=== PATIENT | female | born 1955 | race Caucasian/White ===

== ENCOUNTER 2016-03-11 05:32 | Emergency (ER) | payer BC ==
[2016-03-11] MEDS ORDERED: Acetaminophen TAB* 325 MG PO ONE (06:22)
--- NOTE | 2016-03-11 06:23 | ED ---
Influenza-Like Illness - HPI Summary HPI Summary: pt returned from [place] 2 days ago, c/o feeling fatigued, cough, weak chills, no cp/sob - History of Current Complaint Chief Complaint: EDUpperRespComplaint Hx Obtained From: Patient Onset/Duration: Gradual Onset Severity: Moderate Associated Signs & Symptoms: Myalgia, Cough Related Hx: Smoking - Allergy/Home Medications Allergies/Adverse Reactions: Allergies Allergy/AdvReac Type Severity Reaction Status Date / Time Amoxicillin [From Augmentin] Allergy Unknown Verified 03/11/16 05:37 Reaction Details Clavulanic Acid Allergy Unknown Verified 03/11/16 05:37 [From Augmentin] Reaction Details PMH/Surg Hx/FS Hx/Imm Hx Endocrine/Hematology History: Reports: Hx Thyroid Disease Infectious Disease History: No Infectious Disease History: Denies: Traveled Outside the [place] in Last 30 Days - Family History Known Family History: Positive: None - Social History Alcohol Use: Occasionally Substance Use Type: Reports: None Smoking Status (MU): Light Every Day Tobacco Smoker Cessation Counseling: Patient Advised to Stop Review of Systems Constitutional: Other Positive: Chills, Fatigue Positive: Cough All Other Systems Reviewed And Are Negative: Yes Physical Exam Triage Information Reviewed: Yes Vital Signs On Initial Exam: Initial Vitals Temp Pulse Resp BP Pulse Ox 100.8 F 97 16 108/69 95 03/11/16 05:36 03/11/16 05:36 03/11/16 05:36 03/11/16 05:36 03/11/16 05:36 Vital Signs Reviewed: Yes Appearance: Positive: Well-Appearing, No Pain Distress, Thin Skin: Positive: Warm Eyes: Positive: Normal, TANA ENT: Positive: Hearing grossly normal Neck: Positive: Supple Respiratory/Lung Sounds: Positive: Clear to Auscultation, Breath Sounds Present Cardiovascular: Positive: Normal Abdomen Description: Positive: Nontender, No Organomegaly, Soft Bowel Sounds: Positive: Present Musculoskeletal: Positive: Strength/ROM Intact Neurological: Positive: Sensory/Motor Intact, Alert, Oriented to Person Place, Time, Normal Gait Psychiatric: Positive: Normal - Eliza Coma Scale Coma Scale Total: 15 Diagnostics - Vital Signs Vital Signs Temp Pulse Resp BP Pulse Ox 03/11/16 05:36 100.8 F 97 16 108/69 95 - Laboratory Result Diagrams: 03/11/16 07:00 03/11/16 07:00 Lab Statement: Any lab studies that have been ordered have been reviewed, and results considered in the medical decision making process. - Radiology cxr Xray Interpretation: No Acute Changes Radiology Interpretation Completed By: ED Physician Re-Evaluation - Re-Evaluation First Eval Re-Evaluation Time: 07:57 - reviewed CXR and blood work results with pt Flu Symptom Course/Dx - Diagnoses Provider Diagnoses: Flu Discharge - Discharge Plan Condition: Stable Disposition: HOME Prescriptions: Acetaminoph/Cod 120/12 mg LIQ* [Tylenol/Codeine 120/12 LIQ*] 5 ml PO Q4H PRN # 120 udc MDD 30 PRN Reason: Cough Albuterol HFA INHALER* [Ventolin HFA Inhaler*] 2 puff INH Q6H PRN #1 mdi PRN Reason: cough Oseltamivir CAP* [Tamiflu CAP*] 75 mg PO BID #9 cap Patient Education Materials: Acetaminophen/Codeine (By mouth), Ibuprofen (By mouth), Albuterol (By breathing), Influenza (ED) Referrals: Francesca Swanson MD [Primary Care Provider] - Additional Instructions: Take ibuprofen and tylenol for fever.
[2016-03-11 07:14] LABS: Hematocrit 42 % (35-47); Hemoglobin 13.9 g/dl (12.0-16.0); Mean Corpuscular HGB Conc 34 g/dl (31-36); Mean Corpuscular Hemoglobin 30 pg (27-31); Mean Corpuscular Volume 91 fL (80-97); Mean Platelet Volume 10 um3 (7.4-10.4); Red Blood Count 4.57 10^6/ul (4.0-5.4); Red Cell Distribution Width 13 % (10.5-15); White Blood Count 7.7 10^3/ul (3.5-10.8)
[2016-03-11 07:25] LABS: Albumin 4.1 g/dL (3.2-5.2); Calcium 9.1 mg/dL (8.6-10.3); EGFR African American 109.4 (>60); EGFR Non-African American 85.1 (>60); Globulin 2.4 g/dL (2-4); Potassium 3.7 mmol/L (3.5-5.0); Total Bilirubin 0.4 mg/dL (0.2-1.0); Total Protein 6.5 g/dL (6.4-8.9)
--- NOTE | 2016-03-11 07:37 | RAD ---
HISTORY: Cough COMPARISONS: October 07, 2012 VIEWS: 2: Frontal dual-energy and lateral views of the chest. FINDINGS: CARDIOMEDIASTINAL SILHOUETTE: The cardiomediastinal silhouette is normal. JHOAN: The jhoan are normal. PLEURA: The costophrenic angles are sharp. No pleural abnormalities are noted. LUNG PARENCHYMA: There is hyperinflation with flattening of the diaphragm and expansion of the retrosternal airspace. ABDOMEN: The upper abdomen is clear. There is no subphrenic gas. BONES AND SOFT TISSUES: No bone or soft tissue abnormalities are noted. OTHER: None. IMPRESSION: HYPERINFLATION, CONSISTENT WITH COPD. NO ACTIVE CARDIOPULMONARY DISEASE.
[2016-03-11] MEDS ORDERED: Oseltamivir CAP* 75 MG PO ONE (07:55)
--- NOTE | 2016-03-11 08:26 | ED ---
Jaden Alejo Benjamin, scribed for Italo Ridley MD on 03/11/16 at 0758 . Progress - Progress Note Progress Note: Signout pt from Dr. Stevens. 61yo female c/o cough, nausea, fatigue, and slight fever tonight, and has been gradually getting sick for a few days. Pt recently returned from [place] via flight. - Results/Orders Results/Orders: Lab: Influenza A +. Bloodwork otherwise normal. CXR: negative for PNA. Re-Evaluation - Re-Evaluation First Eval Re-Evaluation Time: 07:57 - reviewed CXR and blood work results with pt Course/Dx - Diagnoses Provider Diagnoses: Flu The documentation as recorded by the jacobibJaden marin Benjamin accurately reflects the service I personally performed and the decisions made by , Italo Ridley MD.
[2016-03-11 08:27] VITALS: BP 122/68
== END 2016-03-11 08:26 | disposition home or self-care (01) ==
LOC: ED 05:32
DX: J11.1 Influenza due to unidentified influenza virus with other respiratory manifestations (principal); R05 Cough; R11.0 Nausea; R50.9 Fever, unspecified
CPT/HCPCS: 36415; 71020; 80053; 85025; 87502; 99283; A9270-GY

== ENCOUNTER 2017-05-18 13:59 | Emergency (ER) | payer BC ==
--- NOTE | 2017-05-18 17:01 | ED ---
Throat Pain/Nasal Congestion - HPI Summary HPI Summary: B/L ear pressure started 1 week ago- has tried sudafed w/ some relief. Home temp 72F. Has been trying to quit smoking - went from 1 PPD to 3-4 cigs per day - back up recently. Admits to blood tinged nasal mucous at times - no aida epistaxis. Denies fever, chills, REMY, ST, otalgia, N/V/D. She has had some spinning sensation w/ positional changes. Saw PCP this week who told her she has allergies - advised to start nasal steroid spray which she's tried once. Also given meclizine for vertigo - has not taken today. No REMY, visual changes, n /t/w, change in bowel/bladder habits, slurred speech, neck pain, CP, dyspnea, dysphagia, facial droop, etc. No h/o neuro pathology and none in family. BP well controlled and no cardiac issues. - History of Current Complaint Chief Complaint: EDEarPain Time Seen by Provider: 05/18/17 15:25 Hx Obtained From: Patient - Allergies/Home Medications Allergies/Adverse Reactions: Allergies Allergy/AdvReac Type Severity Reaction Status Date / Time amoxicillin [From Augmentin] Allergy See Comment Verified 05/18/17 14:07 clavulanic acid Allergy See Comment Verified 05/18/17 14:07 [From Augmentin] PMH/Surg Hx/FS Hx/Imm Hx Endocrine/Hematology History: Reports: Hx Thyroid Disease Infectious Disease History: No Infectious Disease History: Denies: Traveled Outside the [place] in Last 30 Days - Family History Known Family History: Positive: None - Social History Alcohol Use: Occasionally Substance Use Type: Reports: None Hx Tobacco Use: Yes Smoking Status (MU): Light Every Day Tobacco Smoker Physical Exam Vital Signs On Initial Exam: Initial Vitals Temp Pulse Resp BP Pulse Ox 97.1 F 81 17 115/71 94 05/18/17 14:01 05/18/17 14:01 05/18/17 14:01 05/18/17 14:01 05/18/17 14:01 Diagnostics - Vital Signs Vital Signs Temp Pulse Resp BP Pulse Ox 05/18/17 14:01 97.1 F 81 17 115/71 94 - Laboratory Lab Statement: Any lab studies that have been ordered have been reviewed, and results considered in the medical decision making process. EENT Course/Dx - Course Course Of Treatment: Sudafed worked somewhat - stop all meds and try Afrin + saline nasal spray, inc humidification, red home heat, red smoking. F/u w/ PCP if no relief. Discussed next step may be imaging so is important to f/u if no change or worse in next 2-3 days. Danger s/sx reviewed here. Pt agrees w/ plan. - Diagnoses Provider Diagnoses: Eustachian tube dysfunction Discharge - Sign-Out/Discharge Documenting (check all that apply): Discharge - Discharge Plan Condition: Stable Disposition: HOME Patient Education Materials: Vertigo (ED) Referrals: Becky Roldan MD [Primary Care Provider] - Additional Instructions: You are experiencing eustachian tube dysfunction (see education for details). The cause of this is suspected to be from inflamed and irritated nasal mucosa. You may address this by reducing the heat in your home to 68F or less, using humidifier, stay hydrated with plenty of water, juices, Gatorade, etc.avoid diuretics such as caffeine, alcohol etc. In an effort to reduce the swelling in her nasal passages and open up your station tube, you may try Afrin nasal spray. This may be purchased [id number]. Please use as directed on instructions and no more to prevent increased swelling. Stop nasal steroid while using Afrin. You may continue Sudafed with Afrin at your discretion ( i.e. if you get some relief with Afrin and would like to get more, tried with Sudafed). Additionally may try saline nasal sprays or rinses - inquire with the pharmacist for more details. For your vertigo symptoms, he may continue the meclizine until your inner ear pressure resolves. However if both or either of these symptoms persist, follow up with her PCP in the next 2-3 days for more advanced testing which may include imaging as necessary. *If in the meantime you develop a fever greater than 103F despite trying ibuprofen and acetaminophen, change in vision, headache, numbness, tingling, weakness, slurred speech, facial droop, neck pain or stiffness, return to the emergency department NOTE: anything you can do to continue your efforts with smoking cessation will be in your best interest as this may also reduce your nasal mucosal irritation. In place of smoking, you may try gum or patches as these will not irritate your nasal mucosa. - Billing Disposition and Condition Condition: STABLE Disposition: HOME
[2017-05-18 17:25] VITALS: BP 127/77
== END 2017-05-18 17:24 | disposition home or self-care (01) ==
LOC: ED 13:59
DX: H69.90 Unspecified Eustachian tube disorder, unspecified ear (principal)
CPT/HCPCS: 99282

== ENCOUNTER 2018-01-14 08:46 | Emergency (ER) | payer BC ==
[2018-01-14] MEDS ORDERED: NS 0.9% 1000 ML* 1,000 ML IV ONE ×2 (09:05→10:22)
[2018-01-14 09:28] LABS: ABS Basophils 0 10^3/ul (0-0.2); ABS Eosinophils 0.3 10^3/ul (0-0.6); ABS Lymphocytes 1.7 10^3/ul (1.0-4.8); ABS Monocytes 0.4 10^3/ul (0-0.8); ABS Neutrophils 2.1 10^3/ul (1.5-7.7); ABS Nucleated RBC 0 10^3/ul; Eosinophil % 6.1 % (0-6); Hematocrit 41 % (35-47); Hemoglobin 13.8 g/dl (12.0-16.0); Lymphocyte % 37.7 % (25-47); Mean Corpuscular HGB Conc 34 g/dl (31-36); Mean Corpuscular Hemoglobin 31 pg (27-31); Mean Corpuscular Volume 92 fL (80-97); Mean Platelet Volume 9.4 fL (7.4-10.4); Nucleated Red Blood Cells % 0; Platelet Count 257 10^3/ul (150-450); Red Blood Count 4.51 10^6/ul (4.00-5.40); Red Cell Distribution Width 13 % (10.5-15); White Blood Count 4.6 10^3/ul (3.5-10.8)
[2018-01-14 09:41] LABS: INR 0.94 (0.77-1.02)
[2018-01-14 09:47] LABS: EGFR Non-African American 92.4 (>60)
--- OUTSIDE RECORDS SUMMARY | 2018-01-14 09:53 | XMS REPORT | Continuity of Care Document ---
:1955 External Reference #:[id number] Author Name Juanita Mejia Care Team Providers Name Role Phone Becky Roldan MD Primary Care Physician Unavailable Payers Type Date Identification Numbers Payment Provider Subscriber Effective: Policy Number: [id number] [employer] Whit Kenney 2016 PayID: [id number] [address] [address] [place] [address] Advance Directives Description No Information Available Problems Description No Information Family History Date Family Member(s) Problem(s) Comments General Heart Disease General Cancer General Stroke Father Heart Disease Father due to Heart Disease () Mother Esophagus Cancer Mother due to Cancer () Social History Type Date Description Comments Sex Unknown Marital Status Single Lives With Alone Lives With 3 Dogs and 3 cats Occupation Currently Working Occupation Landlord Tobacco Use Start: Unknown current cigarette smoker ETOH Use Occasionally consumes alcohol Tobacco Use Start: Unknown Patient is a current smoker, smokes every day Recreational Drug Use Denies Drug Use Tobacco Use Start: Unknown Light tobacco smoker (10 or fewer cigarettes/day) Exercise Type/Frequency Exercises sporadically Allergies, Adverse Reactions, Alerts Date Description Reaction Status Severity Comments 01/12/2018 Augmentin Depression Active 01/12/2018 Bee Sting Anaphylaxsis Active Medications Medication Date Status Form Strength Qnty SIG Indications Ordering Provider Levothyroxine 01/12/ Active Tablets 100mcg 30tabs 1 by mouth E03.9 Garcia Sodium 2018 every day MD Clement Clonazepam / Active Tablets 0.5mg 1 by mouth Unknown 0000 every night at bedtime Wellbutrin SR / Active Tablets ER 200mg take one Unknown 0000 12HR by mouth twice daily Vivelle-Dot / Active Patches 0.075mg/24 one patch Unknown 0000 Biweek HR every 5 days Progesterone / Active Capsules 150mg daily Unknown Micronized 0000 Epipen 2-Gavin 00/00/ Active Solution 0.3mg/0.3M use as Unknown 0000 Auto-Injec L directed t [place] Thyroid / Hx Tablets 90mg Jamar, 0000 - Becky 01/12/ MD Vicky 2017 Immunizations Description No Information Available Vital Signs Date Vital Result Comment 01/12/2018 7:48am Height 64 inches 5'4" Weight 117.00 lb Heart Rate 70 /min reg BP Systolic Sitting 84 mmHg Lue reg cuff BP Diastolic Sitting 60 mmHg Lue reg cuff Respiratory Rate 16 /min BMI (Body Mass Index) 20.1 kg/m2 Results Description No Information Available Procedures Description No Information Available Encounters Description No Information Available Plan of Treatment Future Appointment(s):03/15/2018 1:20 pm - Jose Vaughan MD at [facility]01/12/2018 - Jose Vaughan MDE78.5 Hyperlipidemia, [id number] Chronic fatigue, [id number] Hypothyroidism, unspecifiedNew Medication:Levothyroxine Sodium 100 mcg - 1 by mouth every dayFollow up:2 monthsInstructions:1. Stop [place] Thyroid. 2. Start levothyroxine 100mcg daily. 3. Recheck thyroid function tests in 3-4 weeks. 4. Avoid all biotin-containing medications for 1 week before tests. 5. Return in 2 months.
--- OUTSIDE RECORDS SUMMARY | 2018-01-14 09:53 | XMS REPORT ---
:1955 External Reference #:[id number] Author Organization [facility] Address [address] [place] [address] Phone [phone] Care Team Providers Name Role Phone Becky Roldan Care Team Information Strategic Account Manager Unavailable Becky Roldan Primary Care Physician Unavailable Payers Type Date Identification Numbers Payment Provider Subscriber Commercial Effective: Policy Number: BC/BS Of PRANAV Whit Kenney 2015 [id number] PayID: [id number] [address] [place] [id number] Problems Description No Information Family History Date Family Member(s) Problem(s) Comments Father due to Heart Disease () - 68 yo Mother due to Throat Cancer () - 74 yo, smoker. Children None Siblings 1 Siblings None First Brother Unknown First Brother 70 Paternal Grandfather due to Stroke () - 69 yo Paternal Grandmother due to Natural Causes () - 80's Maternal Grandfather due to Stroke () - 60's Maternal Grandmother due to Natural Causes () - 80's Social History Type Date Description Comments Marital Status Single Diet gluten and dairy free. no sugar. no desserts. 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 Cigarette Use Current Cigarette Smoker 1/2 x 40 years. down to 6-7 Pack Daily a day 01/2016. down to one cigarette a day. 05/2017. ETOH Use Rare Smoking Patient is a current smoker, smokes every day Daily Caffeine Consumes on average 2 cups of 1/2 decaf and 1/2 regular. coffee per day Exercise Type/Frequency Exercises sporadically walks the dogs most days, 1/2 hour a day. Seat Belt/Car Seat Always uses seat belt Dom Violence Screen screening has been done Dom Violence Screen Allergies, Adverse Reactions, Alerts Date Description Reaction Status Severity Comments 08/13/2015 Augmentin depression/felt awful active 09/04/2016 Bee Sting active 07/23/2015 NKDA inactive Medications Medication Date Status Form Strength Qnty SIG Indications Ordering Provider Odell Thyroid 09/05/ Active Tablets 90mg 90tab 1 by mouth E03.9 Becky Perry 2018 s every day Brijesh Roldan Epinephrine 06/18/ Active Solution 0.3mg/0.3M 2unit use as Becky Perry 2018 Auto-Inject L s directed Brijesh Roldan Progesterone 08/20/ Active Capsules 150mg 30cap 1 by mouth N95.1 Becky Perry Micronized 2016 s every day Brijesh Roldan Clonazepam / Active Tablets 0.5mg 60tab take 1 G47.00 Becky LMadeleine 0000 s tablet by iraj Roldan M.DMadeleine twice daily Wellbutrin / Active Tablets 100mg 60tab take 2 F33.0 Becky L. 0000 s tablets by iraj Roldan M.DMadeleine every day Vivelle-Dot / Active Patches 0.075mg/24 8unit Apply 1 Becky L. 0000 Biweek HR s Patch To Marysol Roldan And Brijesh Dry Skin And Change Twice Per Week Valacyclovir 09/05/ Hx Tablets 1gm 21tab take B02.9 Maci HCL 2018 - s tablets Kalli, 12/29/ three CONTINUOUS LINTER DRIER OPERATOR 2018 times a day for 7d Nasonex 05/17/ Hx Suspension 50mcg/Act 17uni 2 sprays J30.89 Becky Perry 2018 - ts in each Jamar, 06/18/ nostril M.DMadeleine 2018 daily Sudafed 24 05/17/ Hx Tablets ER 240mg J30.89 Becky Perry Hour 2018 - 24HR Jamar, 06/18/ M.D. 2018 Meclizine HCL 05/17/ Hx Tablets 12.5mg 50tab 1-2 by J30.89 Becky Perry 2018 - s mouth four Jamar, 06/18/ times a M.D. 2018 day as needed dizziness Odell Thyroid 02/23/ Hx Tablets 30mg 15tab 1 by mouth Becky Perry 2016 - s 2/7 days a Jamar, 06/18/ week in M.D. 2017 addition to the 60 mg pill. Progesterone/T 08/20/ Hx Cream as Unknown estosterone/Es 2017 - directed trogen 2016 Progesterone 02/08/ Hx Capsules 150mg 90cap 1 by mouth N95.1 Becky Perry 2015 every Jamar, 09/04/ night at M.D. 2017 bedtime pls fax to: Progesterone 10/06/ Hx Soft Gel 90uni take 1 N95.1 Becky Perry 2016 - Caps ts capsule by Jamar, 09/03/ mouth qhs M.D. 2016 Progesterone 09/29/ Hx Capsules 100mg 90cap take one N95.1 Becky Perry Micronized 2015 - s capsule by Jamar, 10/06/ mouth at M.D. 2016 bedtime Azithromycin 08/12/ Hx Tablets 250mg 6tabs 2 by mouth J20.8 Becky Prery 2015 - today. 1 Jamar, 02/08/ by mouth M.D. 2015 daily x 4 Epipen 2-Gavin 07/22/ Hx Solution 0.3mg/0.3M Z91.030 Laila 2016 - Auto-Inject Tonya Mejia NP 2017 Progesterone / Hx Capsules 150mg 90cap 1 by mouth N95.1 Becky Perry 0000 - s every Jamar, 09/29/ night at M.D. 2016 bedtime Vivelle-Dot / Hx Patches 0.075mg/24 8unit Apply 1 N95.1 Becky Perry 0000 - Biweek HR s Patch To Jamar, 08/20/ Clean And M.D. 2016 Dry Skin And Change Twice Per Week Odell Thyroid / Hx Tablets 60mg 180ta take 2 E03.9 Becky Perry 0000 - bs tablet by Jamar, 09/05/ mouth M.D. 2017 every day Progestone / Hx Capsule qd Unknown 0000 - 2016 Medications Administered in Office Medication Date Status Form Strength Qnty SIG Indications Ordering Provider B-12 Injection 09/05/ Administered Injection Maci 2018 Kalli, CONTINUOUS LINTER DRIER OPERATOR Injection 07/09/ Administered Injection Maci Subcutaneous Or 2018 Kalli, Intramuscular CONTINUOUS LINTER DRIER OPERATOR Vital Signs Date Vital Result Comment 12/29/2017 BP Systolic 116 mmHg BP Diastolic 66 mmHg Heart Rate 84 /min Body Temperature 98.4 F Respiratory Rate 16 /min Weight 119.00 lb 09/05/2017 BP Systolic 108 mmHg BP Diastolic 64 mmHg Heart Rate 82 /min Body Temperature 98.2 F Respiratory Rate 15 /min Height 64 inches 5'4" Weight 117.25 lb BMI (Body Mass Index) 20.1 kg/m2 06/18/2017 BP Systolic 100 mmHg BP Diastolic 60 mmHg Heart Rate 60 /min Body Temperature 99.0 F Respiratory Rate 16 /min Height 64 inches 5'4" Weight 118.00 lb BMI (Body Mass Index) 20.3 kg/m2 05/17/2017 BP Systolic 112 mmHg BP Diastolic 78 mmHg Heart Rate 72 /min Body Temperature 98.2 F Respiratory Rate 16 /min Height 64 inches 5'4" Weight 120.00 lb BMI (Body Mass Index) 20.6 kg/m2 02/18/2017 BP Systolic 96 mmHg BP Diastolic 60 mmHg Heart Rate 74 /min Body Temperature 99.1 F Respiratory Rate 16 /min Height 64 inches 5'4" Weight 120.00 lb BMI (Body Mass Index) 20.6 kg/m2 09/04/2016 BP Systolic 108 mmHg BP Diastolic 66 mmHg Heart Rate 66 /min Body Temperature 97.5 F Respiratory Rate 16 /min Height 64 inches 5'4" Weight 117.38 lb BMI (Body Mass Index) 20.1 kg/m2 02/09/2016 BP Systolic 100 mmHg BP Diastolic 60 mmHg Heart Rate 76 /min Body Temperature 98.0 F Respiratory Rate 16 /min Height 64 inches 5'4" Weight 113.00 lb BMI (Body Mass Index) 19.4 kg/m2 08/13/2015 BP Systolic 110 mmHg BP Diastolic 78 mmHg Heart Rate 60 /min Body Temperature 98.2 F Respiratory Rate 18 /min Height 63.75 inches 5'3.75" Weight 117.00 lb BMI (Body Mass Index) 20.2 kg/m2 07/23/2015 BP Systolic 120 mmHg BP Diastolic 54 mmHg Heart Rate 78 /min Body Temperature 97.3 F Respiratory Rate 16 /min Height 63.75 inches 5'3.75" Weight 117.00 lb BMI (Body Mass Index) 20.2 kg/m2 Results Test Date Test Result H/L Range Note Laboratory test 06/18/2017 Triiodothyronine (T3) 258 ng/dL High 71-180 1 finding Thyroid Antibody & 06/18/2017 Thyroid Peroxidase (Tpo) 10 IU/mL 0-34 1 Peroxidase Ab Thyroglobulin Antibody <1.0 IU/mL 0.0-0.9 1, 2 Laboratory test finding 06/18/2017 Reverse T3, Serum 19.3 ng/dL 9.2-24.1 1 Laboratory test finding 06/18/2017 Free T4 1.43 ng/dL 0.75-1.54 TSH <0.03 mIU/L Low 0.50-6.00 3 Free T3 7.58 pg/mL High 2.00-4.90 4 Comprehensive Metabolic Prof 06/18/2017 Sodium 142 mEq/L 134-149 Potassium 4.7 mEq/L 3.6-5.5 Chloride 104 mEq/L 94-112 Carbon Dioxide 26 mEq/L 21-32 Glucose 88 mg/dL 70-105 BUN 14 mg/dL 6-26 Creatinine 0.6 mg/dL 0.6-1.4 BUN/Creat Ratio 23.3 CALC 8.0-36.0 Calcium 10.2 mg/dL 8.6-10.2 Total Protein 6.6 g/dL 6.4-8.3 Albumin 4.5 g/dL 3.8-5.5 Globulin 2.1 g/dL 2.0-4.8 A/G Ratio 2.1 CALC 0.6-2.3 Alk. Phosphatase 59 U/L 30-110 Alt (SGPT) 19 U/L 7-35 Ast (Sgot) 17 U/L 5-34 Total Bilirubin 0.5 mg/dL 0.2-1.3 GFR Non- >60 ml/min/1.73m^ >=60 GFR >60 ml/min/1.73m^ >=60 Fractionated Estrogens 02/15/2017 Estrone (E1) 37 pg/mL 5 Estradiol (E2) 51 pg/mL 6 Testosterone Free & Total 02/15/2017 Free Testosterone ng/dl 0.10 ng/dL 0.06-0.87 7 Testosterone 14 ng/dL 8-60 8 Laboratory test finding 02/15/2017 Estrone 29 pg/mL 9 Insulin-Like Growth Factor 1 02/15/2017 Insulin like Growth 112 ng/mL 35- 201 Factor I Igf1 Z-score 0.39 SD 10 Laboratory test finding 02/15/2017 Cortisol 15.43 g/dL 11 Thyroxine 4.07 g/mL Low 6.09-12.23 TSH (Thyroid Stim Horm) 0.91 mcIU/mL 0.34-5.60 T3 Total 0.63 ng/mL Low 0.87-1.78 Estradiol 66 pg/mL 12 Progesterone 6.4 ng/mL 13 Unconjugated (Free) Estriol <0.07 ng/mL <0.08 14 Dhea Sulfate 125 g/dL <15-157 15 Laboratory test finding 07/23/2015 TSH 0.71 mIU/L 0.50-6.00 Free T4 0.97 ng/dL 0.75-1.54 1 1SST 2 Thyroglobulin Antibody measured by [employer] Methodology 3 RESULTS VERIFIED BY REPEAT ANALYSIS 4 RESULTS VERIFIED BY REPEAT ANALYSIS 5 REFERENCE VALUE Premenopausal :17-200 Postmenopausal : 7-40 ADDITIONAL INFORMATION This test was developed and its performance characteristics determined by [facility] in a manner consistent with CLIA requirements. This test has not been cleared or approved by the U.S. Food and Drug Administration. 6 REFERENCE VALUE Premenopausal: 15-350 (E2 levels vary widely through the menstrual cycle.) Postmenopausal: <10 ADDITIONAL INFORMATION This test was developed and its performance characteristics determined by [facility] in a manner consistent with CLIA requirements. This test has not been cleared or approved by the U.S. Food and Drug Administration. Test Performed by: [facility] [employer] - [facility] [address] [place] [address] 7 ADDITIONAL INFORMATION Testing performed by [facility]. This test was developed and its performance characteristics determined by [facility] in a manner consistent with CLIA requirements. This test has not been cleared or approved by the U.S. Food and Drug Administration. 8 ADDITIONAL INFORMATION Testing performed by Liquid Chromatography-Tandem Mass Spectrometry (LC-MS/MS). This test was developed and its performance characteristics determined by [facility] in a manner consistent with CLIA requirements. This test has not been cleared or approved by the U.S. Food and Drug Administration. Test Performed by: [facility] [employer] - [address] [address] 9 REFERENCE VALUE Premenopausal :17-200 Postmenopausal : 7-40 ADDITIONAL INFORMATION This test was developed and its performance characteristics determined by [facility] in a manner consistent with CLIA requirements. This test has not been cleared or approved by the U.S. Food and Drug Administration. Test Performed by: [facility] [employer] - [address] [address] 10 REFERENCE VALUE -2.0 - +2.0 ADDITIONAL INFORMATION This test was developed and its performance characteristics determined by [facility] in a manner consistent with CLIA requirements. This test has not been cleared or approved by the U.S. Food and Drug Administration. Test Performed by: [address] [address] 11 AM 8.7-22.4 PM <10 12 Estradiols <40 pg/mL are sent to a reference lab for low range testing. Postmenopausal Females < 20 Ovulating females: by day in cycle relative to LH Peak Follicular phase - 12 10-50 - 4 60-200 Mid-cycle - 1 120-375 Luteal phase + 2 50-155 + 6 60-260 + 12 15-115 13 Female reference ranges for Progesterone: Follicular phase.......0.3 - 1.5 ng/ml Mid-luteal phase.......5.2 - 18.5 ng/ml Postmenopausal.........< 0.8 ng/ml 1st trimester.........4.7 - 50.0 ng/ml 2nd trimester.........19.4 - 45.3 ng/ml 14 Test Performed by: [address] [address] 15 Test Performed by: [address] [address] Procedures Date CPT Code Description Status Comment 09/05/2017 26618 Injection Subcutaneous Or Completed Intramuscular 06/18/2017 63292 Electrocardiogram Complete Completed 04/14/2017 Mammogram Completed 04/14/2017 Bone Mineral Density Test Completed osteopenia done at [facility]. 02/29/2012 Colonoscopy Completed 10yr f/u [facility]. Encounters Type Date Location Provider CPT E/M Dx Office Visit 09/05/2017 9:30a Main Office ANUJA Stovall [address] B02.9 Office Visit 06/18/2017 9:40a Main Office Becky oRldan M.D. 05223 H02.403 Z01.818 E03.9 H04.123 Office Visit 05/17/2017 1:20p Main Office Becky Roldan M.D. 19436 J30.89 H01.133 Z48.02 S01.00xA Office Visit 02/18/2017 2:40p [facility] Becky Roldan M.D. 05591 E03.9 R53.83 Office Visit 09/04/2016 10:50a Main Office Becky Roldan M.D. 08977 F43.22 F17.208 L63.8 Office Visit 02/09/2016 1:00p Main Office Becky Roldan M.D. 67164 Z00.01 G47.00 F43.22 E03.9 F43.21 N60.02 E55.9 Office Visit 08/13/2015 1:50p Main Office Becky Roldan M.D. 38973 J20.8 N95.1 F17.208 Z71.6 Office Visit 07/23/2015 11:00a Main Office Laila MejiaLUDMILA 53509 N95.1 G47.00 F33.0 Z91.030 E03.9 Plan of Care Future Appointment(s):12/30/2017 9:00 am - Becky Roldan M.D. at Main Pqyxhg6912/29/2017 - Becky Roldan M.D.R53.83 Other fatigueNew Labs:CBC W/ DiffCortisol AmCCS-Comp And Lipid (Fma)B12 (Fma/[facility])Bartonella SP Antibody ProfileFolic Acid (Fma/[facility])Ebv Antibody PanelLyme Total/Igm/G WB Regardless/LcorpTick-Borne Panel PCRUric Acid, SerumOmega-3 & -6 Fatty Acids PlasmComments:You've already started to do better with lifestyle habits.Follow up:3-4 weeks.E03.9 Hypothyroidism, unspecifiedNew Labs:T4 + TSH + T3 QihimuL86.9 Vitamin D deficiency, unspecifiedNew Labs:Vitamin D, 25Hydroxy( Fma/LCG47.00 Insomnia, unspecifiedComments:refill sgclmmwrohF44.0 Bilateral primary osteoarthritis of kneeComments:refer to Dr. Chowdary.L63.8 Other alopecia areataNew Labs:Iron/Tibc & Ferritin([facility])N60.19 Diffuse cystic mastopathy of unspecified breastNew Xrays:Ultrasound Breast BilateralComments: refer to Ifeoma Espinoza [place] [facility].AllComments:~B_~U_Medication Management ~b_~u_ Patient Understands medications she's taking? Yes No Are there Barriers to Adherence? Yes No Has the patient been asked about herbal supplements and therapies, and OTC meds? Yes No ~B_~U_Care Plan~b_~ u_1. Patient has been queried about patient's goals/preferences and functional/ lifestyle goals at relevant visits. If relevant, describe: na2. Treatment goals as explained to the patient: above3. Are there barriers to meeting treatment goals? Yes No If Yes, please describe:4. Self-Management goals as described to the patient: Yes No as above.
--- NOTE | 2018-01-14 10:07 | ED ---
Complex/Multi-Sys Presentation - HPI Summary HPI Summary: 62-year-old female presents with weakness for the month. She states it is really hard to get out of bed. She states that she believes it is her thyroid causing her illness. States she was seen by endocrine on and they told to cut her thyroid medicine in half. States that she needs more thyroid medication as whenever she by accident takes more medication she feels better. She admits occasional dizziness. Dizziness is minimal now. States she was given some juice which did not help. No nausea vomiting. No chest pain or shortness breath. denies any feeling that she is going to pass out. she was tested for lyme and neg two weeks ago. denies any headache. no fever. no recent illness. - History Of Current Complaint Chief Complaint: EDDizziness Time Seen by Provider: 01/14/18 09:01 - Allergies/Home Medications Allergies/Adverse Reactions: Allergies Allergy/AdvReac Type Severity Reaction Status Date / Time amoxicillin [From Augmentin] Allergy See Comment Verified 05/18/17 14:07 clavulanic acid Allergy See Comment Verified 05/18/17 14:07 [From Augmentin] Home Medications: Home Medications Estradiol [Vivelle-Dot] 1 patch TRANSDERM Q4D 01/14/18 [History Confirmed ] Levothyroxine TAB* [Synthroid TAB*] 100 mcg PO DAILY 01/14/18 [History Confirmed 01/14/18] Progesterone, Micronized [Progesterone] 150 mg PO BEDTIME 01/14/18 [History Confirmed 01/14/18] Thyroid TAB (NF) [Thyroid TAB 90 MG(NF)] 90 mg PO DAILY 01/14/18 [History Confirmed 01/14/18] buPROPion TAB* [Wellbutrin TAB*] 100 mg PO BID 01/14/18 [History Confirmed 01/14] clonazePAM [Clonazepam] 0.5 mg PO BEDTIME 01/14/18 [History Confirmed 01/14/18] PMH/Surg Hx/FS Hx/Imm Hx Endocrine/Hematology History: Reports: Hx Thyroid Disease Denies: Hx Anticoagulant Therapy, Hx Blood Disorders, Hx Diabetes, Hx Systemic Lupus Erythematosus, Hx Anemia Cardiovascular History: Denies: Hx Aneurysm, Hx Congenital Heart Disease, Hx Congestive Heart Failure , Hx Embolism, Hx Hypotension, Hx Hypertension, Hx Myocardial Infarction GI History: Denies: Hx Gastrointestinal Bleed, Hx Ulcer Musculoskeletal History: Denies: Hx Rheumatoid Arthritis, Hx Osteoporosis Infectious Disease History: No Infectious Disease History: Denies: Traveled Outside the [place] in Last 30 Days - Family History Known Family History: Positive: None - Social History Alcohol Use: Occasionally Hx Substance Use: No Substance Use Type: Reports: None Hx Tobacco Use: Yes Smoking Status (MU): Current Every Day Smoker Review of Systems Negative: Fever Negative: Chest Pain Negative: Shortness Of Breath Negative: Abdominal Pain Positive: Weakness All Other Systems Reviewed And Are Negative: Yes Physical Exam Triage Information Reviewed: Yes Vital Signs On Initial Exam: Initial Vitals Temp Pulse Resp BP Pulse Ox 96.8 F 95 18 100/63 95 01/14/18 08:49 01/14/18 08:49 01/14/18 08:49 01/14/18 08:49 01/14/18 08:49 Vital Signs Reviewed: Yes Appearance: Positive: Well-Appearing Skin: Positive: Warm, Dry Head/Face: Positive: Normal Head/Face Inspection Eyes: Positive: Normal, EOMI, TANA, Conjunctiva Clear ENT: Positive: Normal ENT inspection, Pharynx normal, TMs normal Neck: Positive: Supple, Nontender, No Lymphadenopathy Respiratory/Lung Sounds: Positive: Clear to Auscultation, Breath Sounds Present Cardiovascular: Positive: Normal, RRR Abdomen Description: Positive: Nontender, Soft Bowel Sounds: Positive: Present Musculoskeletal: Positive: Normal Neurological: Positive: Normal Psychiatric: Positive: Normal Diagnostics - Vital Signs Vital Signs Temp Pulse Resp BP Pulse Ox 01/14/18 09:32 74 16 99/66 96 01/14/18 09:02 77 99/62 97 01/14/18 08:49 96.8 F 95 18 100/63 95 - Laboratory Lab Results: Lab Results 01/14/18 01/14/18 01/14/18 Range/Units 09:14 09:14 09:14 WBC 4.6 (3.5-10.8) 10^3/ul RBC 4.51 (4.00-5.40) 10^6/ul Hgb 13.8 (12.0-16.0) g/dl Hct 41 (35-47) % MCV 92 (80-97) fL MCH 31 (27-31) pg MCHC 34 (31-36) g/dl RDW 13 (10.5-15) % Plt Count 257 (150-450) 10^3/ul MPV 9.4 (7.4-10.4) fL Neut % (Auto) 45.6 (38-83) % Lymph % (Auto) 37.7 (25-47) % [place] % (Auto) 9.7 H (0-7) % Eos % (Auto) 6.1 H (0-6) % Baso % (Auto) 0.9 (0-2) % Absolute Neuts (auto) 2.1 (1.5-7.7) 10^3/ul Absolute Lymphs (auto) 1.7 (1.0-4.8) 10^3/ul Absolute Monos (auto) 0.4 (0-0.8) 10^3/ul Absolute Eos (auto) 0.3 (0-0.6) 10^3/ul Absolute Basos (auto) 0 (0-0.2) 10^3/ul Absolute Nucleated RBC 0 10^3/ul Nucleated RBC % 0 INR (Anticoag Therapy) 0.94 (0.77-1.02) APTT 30.1 (26.0-36.3) seconds Sodium 142 (135-145) mmol/L Potassium 4.3 (3.5-5.0) mmol/L Chloride 110 (101-111) mmol/L Carbon Dioxide 28 (22-32) mmol/L Anion Gap 4 (2-11) mmol/L BUN 15 (6-24) mg/dL Creatinine 0.65 (0.51-0.95) mg/dL Est GFR ( Amer) 111.8 (>60) Est GFR (Non-Af Amer) 92.4 (>60) BUN/Creatinine Ratio 23.1 H (8-20) Glucose 95 (70-100) mg/dL Lactic Acid (0.5-2.0) mmol/L Calcium 9.5 (8.6-10.3) mg/dL Magnesium 2.0 (1.9-2.7) mg/dL Total Bilirubin 0.40 (0.2-1.0) mg/dL AST 19 (13-39) U/L ALT 16 (7-52) U/L Alkaline Phosphatase 61 (34-104) U/L Troponin I 0.00 (<0.04) ng/mL C-Reactive Protein < 1.00 (<8.01) mg/L Total Protein 6.3 L (6.4-8.9) g/dL Albumin 4.1 (3.2-5.2) g/dL Globulin 2.2 (2-4) g/dL Albumin/Globulin Ratio 1.9 (1-3) 25-OH Vitamin D Total Pending TSH Pending Free T4 Pending Cortisol 9.15 mcg/dL 01/14/18 Range/Units 09:14 WBC (3.5-10.8) 10^3/ul RBC (4.00-5.40) 10^6/ul Hgb (12.0-16.0) g/dl Hct (35-47) % MCV (80-97) fL MCH (27-31) pg MCHC (31-36) g/dl RDW (10.5-15) % Plt Count (150-450) 10^3/ul MPV (7.4-10.4) fL Neut % (Auto) (38-83) % Lymph % (Auto) (25-47) % [place] % (Auto) (0-7) % Eos % (Auto) (0-6) % Baso % (Auto) (0-2) % Absolute Neuts (auto) (1.5-7.7) 10^3/ul Absolute Lymphs (auto) (1.0-4.8) 10^3/ul Absolute Monos (auto) (0-0.8) 10^3/ul Absolute Eos (auto) (0-0.6) 10^3/ul Absolute Basos (auto) (0-0.2) 10^3/ul Absolute Nucleated RBC 10^3/ul Nucleated RBC % INR (Anticoag Therapy) (0.77-1.02) APTT (26.0-36.3) seconds Sodium (135-145) mmol/L Potassium (3.5-5.0) mmol/L Chloride (101-111) mmol/L Carbon Dioxide (22-32) mmol/L Anion Gap (2-11) mmol/L BUN (6-24) mg/dL Creatinine (0.51-0.95) mg/dL Est GFR ( Amer) (>60) Est GFR (Non-Af Amer) (>60) BUN/Creatinine Ratio (8-20) Glucose (70-100) mg/dL Lactic Acid 1.7 (0.5-2.0) mmol/L Calcium (8.6-10.3) mg/dL Magnesium (1.9-2.7) mg/dL Total Bilirubin (0.2-1.0) mg/dL AST (13-39) U/L ALT (7-52) U/L Alkaline Phosphatase (34-104) U/L Troponin I (<0.04) ng/mL C-Reactive Protein (<8.01) mg/L Total Protein (6.4-8.9) g/dL Albumin (3.2-5.2) g/dL Globulin (2-4) g/dL Albumin/Globulin Ratio (1-3) 25-OH Vitamin D Total TSH Free T4 Cortisol mcg/dL Result Diagrams: 01/14/18 09:14 01/14/18 09:14 Lab Statement: Any lab studies that have been ordered have been reviewed, and results considered in the medical decision making process. - EKG No standard instances Cardiac Rate: NL EKG Rhythm: Sinus Rhythm Summary of EKG Findings: sinus rhythm Re-Evaluation - Re-Evaluation First Eval Re-Evaluation Time: 11:25 Change: Improved Comment: feeling better after fluids, discussed results multiple results Complex Multi-Symp Course/Dx Course Of Treatment: 62-year-old female presents with weakness for the month. She states it is really hard to get out of bed. She states that she believes it is her thyroid causing her illness. States she was seen by endocrine on and they told to cut her thyroid medicine in half. States that she needs more thyroid medication as whenever she by accident takes more medication she feels better. She admits occasional dizziness. Dizziness is minimal now. States she was given some juice which did not help. No nausea vomiting. No chest pain or shortness breath. denies any feeling that she is going to pass out. she was tested for lyme and neg two weeks ago. denies any headache. no fever. no recent illness. On exam normal physical exam. Patient appears pale. Labs within normal limits. TSH is a little low was most consistent with too much levothyroxine. Told to follow up with animal science instructor plan. Discussed results with patient as best could explain at this time. told to folow up with primary. Patient understands and agrees with plan. - Diagnoses Differential Diagnoses/HQI/PQRI: Metabolic Abnormality, Other - hypothyroidism, hypovolemia Provider Diagnoses: Fatigue Discharge - Sign-Out/Discharge Documenting (check all that apply): Patient Departure - Discharge Plan Condition: Good Disposition: HOME Patient Education Materials: Fatigue (ED) Referrals: Becky Roldan MD [Primary Care Provider] - Additional Instructions: Follow up with animal science instructor Return to ED if develop any new or worsening symptoms - Billing Disposition and Condition Condition: GOOD Disposition: Home
[2018-01-14] MEDS ORDERED: Meclizine TAB* 12.5 MG PO ONE (11:03)
[2018-01-14 11:44] LABS: Urine Appearance Cloudy; Urine Blood Negative (Negative); Urine Color Yellow; Urine Ketones Negative (Negative); Urine Protein Negative (Negative); Urine Specific Gravity 1.009 (1.010-1.030); Urine Urobilinogen Negative (Negative)
[2018-01-14 12:05] VITALS: BP 103/67
== END 2018-01-14 12:10 | disposition home or self-care (01) ==
LOC: ED 08:46
DX: R53.83 Other fatigue (principal); E07.9 Disorder of thyroid, unspecified; F17.200 Nicotine dependence, unspecified, uncomplicated
CPT/HCPCS: 36415; 80053; 81003; 82306; 82533; 83605; 83735; 83880; 84439; 84443; 84484; 85025; 85610; 85730; 86140; 86618; 93005; 96360; 96361; 99283